=== PATIENT | female | born 1970 | race Two or more races ===

== ENCOUNTER 2024-01-05 00:28 | Emergency (ER) | payer MEDICAID, OTHER ==
[~2024-01-05] VITALS: Ht 165.1 cm; Wt 136.6 kg
[2024-01-05] MEDS: HYDROcodone-ACET 10/325MG TAB PO ONE (01:02)
[2024-01-05] MEDS: KETOROLAC TROMETH 60MG/2ML VIAL IM ONE (01:03)
[2024-01-05] MEDS ORDERED: HYDR-4902 PO (02:23)
[2024-01-05] MEDS ORDERED: IBUP-1455 PO (02:23)
[2024-01-05 03:45] VITALS: BP 117/81; PULSE 93; RESP 18; TEMP 98.1; O2SAT 96
== END 2024-01-05 06:00 | disposition home or self-care (01) ==
LOC: ER 00:28 → EDUNIT# 00:28 → EDBD 00:28 → ER 06:00
DX: S16.1XXA Strain of muscle, fascia and tendon at neck level, initial encounter (principal); S20.211A Contusion of right front wall of thorax, initial encounter; S40.021A Contusion of right upper arm, initial encounter; R51.9 Headache, unspecified; V43.62XA Car passenger injured in collision with other type car in traffic accident, initial encounter; Y93.89 Activity, other specified; Y92.488 Other paved roadways as the place of occurrence of the external cause; Y99.8 Other external cause status
CPT/HCPCS: 70450; 71046; 72125; 73060; 96372; 99285; J1885